=== PATIENT | female | born 2000 | race Caucasian/White ===

== ENCOUNTER 2022-11-20 10:47 | Emergency (ER) | payer OTHER ==
[~2022-11-20] VITALS: Ht 165.1 cm; Wt 61.2 kg
[2022-11-20 11:08] LABS: BILIRUBIN Negative (Negative); BLOOD Negative (Negative); COLOR Yellow (Yellow); KETONE Negative (Negative); LEUKO ESTERASE Negative (Negative); NITRITE Negative (Negative); UROBILINOGEN 0.2 E.U./dl (0.0-1.0)
[2022-11-20] MEDS ORDERED: CEPHALEXIN500 M1 PO (11:19)
[2022-11-20 11:54] LABS: BACTERIA 2+; EPITHELIAL CELLS 21-30; WBC 0-2 wbc/hpf (0-5)
[2022-11-20 12:06] LABS: CLARITY Cloudy (Clear); GLUCOSE Negative (Negative)
== END 2022-11-20 13:51 | disposition home or self-care (01) ==
LOC: ED 10:47
PROVIDERS: Emergency Medicine
DX: O23.41 Unspecified infection of urinary tract in pregnancy, first trimester (principal); N39.0 Urinary tract infection, site not specified; Z3A.01 Less than 8 weeks gestation of pregnancy

== ENCOUNTER 2025-03-29 19:13 | Emergency (ER) | payer OTHER ==
[~2025-03-29] VITALS: Ht 165.1 cm; Wt 65.8 kg
[~2025-03-29 19:13] MED LIST: CEPHALEXIN500 M1 PO
[2025-03-29 20:21] LABS: BASO % 0.3 % (0.0-1.0); EOS # 0.3 10*3/uL (0.0-0.4); EOS % 3.1 % (1.0-4.0); MEAN CELL VOLUME 89.9 fl (81.0-99.0); MEAN CORPUSCULAR HGB CONC 32.3 g/dl (33.0-37.0); MEAN PLATELET VOLUME 10.1 fl (9.6-12.3); MONO # 0.6 10*3/uL (0.1-1.0); MONO % 7.8 % (3.0-9.0); NEUT # 4.4 10*3/uL (2.3-7.9); NEUT % 54.9 % (47.0-73.0); PLATELET COUNT AUTOMATED 270 10*3/uL (130-400); RED BLOOD COUNT 4.45 10*6/uL (4.10-5.10); WHITE BLOOD COUNT 7.9 10*3/uL (4.8-10.8)
[2025-03-29 20:21] LABS: BILIRUBIN Negative (Negative); BLOOD Negative (Negative); CLARITY Clear (Clear); COLOR Yellow (Yellow); GLUCOSE Negative (Negative); KETONE Negative (Negative); LEUKO ESTERASE Negative (Negative); NITRITE Negative (Negative); PH 6.5 (4.5-8.0); SPECIFIC GRAVITY <= 1.005 (1.001-1.030); UROBILINOGEN 0.2 E.U./dl (0.0-1.0)
[2025-03-29 20:27] LABS: WBC 0-2 wbc/hpf (0-5)
== END 2025-03-29 21:50 | disposition home or self-care (01) ==
LOC: ED 19:13
PROVIDERS: Emergency Medicine
DX: O20.9 Hemorrhage in early pregnancy, unspecified (principal); R10.2 Pelvic and perineal pain; Z32.01 Encounter for pregnancy test, result positive; Z79.899 Other long term (current) drug therapy

== ENCOUNTER 2025-07-25 11:18 | Emergency (ER) | payer OTHER ==
[~2025-07-25] VITALS: Ht 165.1 cm; Wt 66.2 kg
[2025-07-25] MEDS ORDERED: PROGESTERONE100 M2 PO (11:38)
[2025-07-25] MEDS ORDERED: Metoclopramide Hydrochloride 10 MG/2 ML VIAL IV ONE (12:00)
[2025-07-25] MEDS ORDERED: SODIUM CHLORIDE 0.9% 1,000 ML IV ONE (12:00)
[2025-07-25] MEDS ORDERED: diphenhydrAMINE hydrochloride 50 MG/ML VIAL IV ONE (12:00)
== END 2025-07-25 14:46 | disposition home or self-care (01) ==
LOC: ED 11:18
DX: G43.909 Migraine, unspecified, not intractable, without status migrainosus (principal); H92.03 Otalgia, bilateral; R50.9 Fever, unspecified; Z20.822 Contact with and (suspected) exposure to COVID-19